=== PATIENT | female | born 1965 | race Hispanic/Latino ===

== ENCOUNTER 2020-11-22 15:42 | Emergency (ER) | payer SELFPAY ==
[2020-11-22] MEDS ORDERED: 0.9% NACL 500ML IV.SOLN 500 ML IV ONE ×2 (16:20→18:20)
[2020-11-22 16:35] LABS: BASOPHILS % (AUTO) 0.2 % (0.0-5.0); EOSINOPHILS % (AUTO) 1.5 % (0.0-8.0); HEMATOCRIT 35.4 % (36-48); LYMPHOCYTES % (AUTO) 25.7 % (21.0-51.0); MEAN CORPUSCULAR HEMOGLOBIN 27.5 pg (27.0-33.0); MEAN CORPUSCULAR HGB CONC 32.5 g/dL (32.0-36.0); MEAN CORPUSCULAR VOLUME 84.7 fL (79-99); MONOCYTES % (AUTO) 4.3 % (3.0-13.0); NEUTROPHILS % (AUTO) 67.8 % (40.0-77.0); PLATELET COUNT (AUTO) 252 K/uL (130-400); RED BLOOD CELL COUNT(AUTO) 4.18 MIL/uL (4.00-5.50); RED CELL DISTRIBUTION WIDTH 12.9 % (11.0-15.5); WHITE BLOOD COUNT (AUTO) 10.7 K/uL (4.8-10.8)
[2020-11-22 16:51] LABS: ALBUMIN 3.6 g/dL (3.5-5.0); BILIRUBIN,TOTAL 0.3 mg/dL (0.2-1.0)
[2020-11-22 17:32] LABS: APPEARANCE,URINE Clear (CLEAR); BILIRUBIN,URINE Negative (NEGATIVE); COLOR,URINE Yellow (YELLOW); GLUCOSE, URINE (UA) 500 mg/dL (NEGATIVE); KETONES,URINE Negative (NEGATIVE); LEUKOCYTE ESTERASE ,URINE Negative (NEGATIVE); NITRATE,URINE Negative (NEGATIVE); OCCULT BLOOD,URINE Negative (NEGATIVE); PROTEIN,URINE Negative (NEGATIVE); UROBILINOGEN,URINE 0.2 mg/dL (0.2-1.0)
[2020-11-22 17:46] LABS: BACTERIA,URINE Rare /HPF (None Seen); RBC,URINE 0-1 /HPF (0-1); SQUAMOUS EPITHELIAL CELL,UR Few /HPF (0-2); WBC,URINE 0-1 /HPF (0-1)
== END 2020-11-22 19:45 | disposition home or self-care (01) ==
LOC: EDH 15:42
DX: R11.2 Nausea with vomiting, unspecified (principal); E86.0 Dehydration; T36.8X5A Adverse effect of other systemic antibiotics, initial encounter; E11.65 Type 2 diabetes mellitus with hyperglycemia; I10 Essential (primary) hypertension; Y92.89 Other specified places as the place of occurrence of the external cause
CPT/HCPCS: 36415; 80053; 81001; 84484; 85025; 93005; 96360; 99284; J7040 ×2

== ENCOUNTER 2021-10-07 19:34 | Emergency (ER) | payer SELFPAY ==
[~2021-10-07] VITALS: Ht 154.9 cm; Wt 93.0 kg
[2021-10-07] MEDS ORDERED: NIFEDIPINE 10 MG CAP PO SCH (20:00)
[2021-10-07 20:26] LABS: BASOPHILS % (AUTO) 0.2 % (0.0-5.0); EOSINOPHILS % (AUTO) 1.7 % (0.0-8.0); HEMATOCRIT 38.2 % (36-48); LYMPHOCYTES % (AUTO) 30.1 % (21.0-51.0); MEAN CORPUSCULAR HEMOGLOBIN 27.4 pg (27.0-33.0); MEAN CORPUSCULAR HGB CONC 32.2 g/dL (32.0-36.0); MEAN CORPUSCULAR VOLUME 85.1 fL (79-99); MONOCYTES % (AUTO) 3.5 % (3.0-13.0); NEUTROPHILS % (AUTO) 64.3 % (40.0-77.0); PLATELET COUNT (AUTO) 267 K/uL (130-400); RED BLOOD CELL COUNT(AUTO) 4.49 MIL/uL (4.00-5.50); RED CELL DISTRIBUTION WIDTH 13.1 % (11.0-15.5); WHITE BLOOD COUNT (AUTO) 8.9 K/uL (4.8-10.8)
[2021-10-07 20:41] LABS: CREATININE 1.2 mg/dL (0.5-1.5); POTASSIUM 3.8 mmol/L (3.5-5.1)
[2021-10-07 20:46] LABS: ALBUMIN 3.5 g/dL (3.5-5.0); BILIRUBIN,TOTAL 0.2 mg/dL (0.2-1.0); TOTAL PROTEIN, SERUM 7.9 g/dL (6.0-8.3)
[2021-10-07] MEDS ORDERED: INSULIN HUMULIN R 100 UNIT/ML 3ML IV ONE (21:30)
[2021-10-07] MEDS ORDERED: 0.9% NACL 500ML IV.SOLN 500 ML IV SCH (21:30)
[2021-10-07 21:36] LABS: APPEARANCE,URINE Clear (CLEAR); BILIRUBIN,URINE Negative (NEGATIVE); COLOR,URINE Yellow (YELLOW); GLUCOSE, URINE (UA) >=1000 mg/dL (NEGATIVE); KETONES,URINE Negative (NEGATIVE); LEUKOCYTE ESTERASE ,URINE Negative (NEGATIVE); NITRATE,URINE Negative (NEGATIVE); OCCULT BLOOD,URINE Negative (NEGATIVE); PH,URINE 6.5 (5.0-8.0); PROTEIN,URINE POS 1+ mg/dL (NEGATIVE)
[2021-10-07 21:37] LABS: BACTERIA,URINE None Seen /HPF (None Seen); RBC,URINE 0-1 /HPF (0-1); WBC,URINE 0-1 /HPF (0-1)
[2021-10-07 21:38] VITALS: BP 168/77
== END 2021-10-07 22:12 | disposition home or self-care (01) ==
LOC: EDH 19:34
DX: I10 Essential (primary) hypertension (principal); E11.65 Type 2 diabetes mellitus with hyperglycemia; E66.9 Obesity, unspecified; Z68.38 Body mass index [BMI] 38.0-38.9, adult
CPT/HCPCS: 36415; 71045; 80053; 81001; 82948; 84484; 85025; 93005; 96361; 96374; 99285; J1815; J7040

== ENCOUNTER 2021-10-09 21:28 | Emergency (ER) | payer SELFPAY ==
[~2021-10-09] VITALS: Ht 152.4 cm; Wt 92.5 kg
[2021-10-10] MEDS ORDERED: LABETALOL 20MG VIAL IV ONE (00:30)
[2021-10-10 01:35] LABS: BASOPHILS % (AUTO) 0.4 % (0.0-5.0); EOSINOPHILS % (AUTO) 2.5 % (0.0-8.0); HEMATOCRIT 39.3 % (36-48); MEAN CORPUSCULAR HEMOGLOBIN 27.9 pg (27.0-33.0); MEAN CORPUSCULAR HGB CONC 32.3 g/dL (32.0-36.0); MEAN CORPUSCULAR VOLUME 86.2 fL (79-99); MONOCYTES % (AUTO) 4.6 % (3.0-13.0); NEUTROPHILS % (AUTO) 58.2 % (40.0-77.0); PLATELET COUNT (AUTO) 276 K/uL (130-400); RED BLOOD CELL COUNT(AUTO) 4.56 MIL/uL (4.00-5.50); RED CELL DISTRIBUTION WIDTH 13.3 % (11.0-15.5); WHITE BLOOD COUNT (AUTO) 11.6 K/uL (4.8-10.8)
[2021-10-10 01:47] LABS: CREATININE 1.1 mg/dL (0.5-1.5); POTASSIUM 3.8 mmol/L (3.5-5.1)
[2021-10-10 01:50] LABS: ALBUMIN 3.7 g/dL (3.5-5.0); BILIRUBIN,TOTAL 0.3 mg/dL (0.2-1.0); TOTAL PROTEIN, SERUM 7.6 g/dL (6.0-8.3)
[2021-10-10 02:00] LABS: B-TYPE NATRIURETIC PEPTIDE 16 pg/mL (0-100)
[2021-10-10 02:41] VITALS: BP 124/41
[2021-10-10] MEDS ORDERED: METO-408 PO (03:29)
[2021-10-10] MEDS ORDERED: METO25PO2 PO (03:34)
== END 2021-10-10 03:45 | disposition home or self-care (01) ==
LOC: EDH 21:28
DX: I10 Essential (primary) hypertension (principal); E11.65 Type 2 diabetes mellitus with hyperglycemia; Z20.822 Contact with and (suspected) exposure to COVID-19; E66.9 Obesity, unspecified; Z68.38 Body mass index [BMI] 38.0-38.9, adult; Z79.899 Other long term (current) drug therapy
CPT/HCPCS: 36415; 80053; 82550; 83690; 83735; 83880; 84484; 85025; 87635; 93005; 99284; C9803; J3490

== ENCOUNTER 2024-02-20 10:34 | Emergency (ER) | payer BC ==
[~2024-02-20] VITALS: Ht 154.9 cm; Wt 99.8 kg
[~2024-02-20 10:34] MED LIST: METO25PO2 PO
[2024-02-20 10:51] LABS: BASOPHILS # (AUTO) 0.03 K/uL (0.00-0.20); BASOPHILS % (AUTO) 0.3 % (0.0-5.0); EOSINOPHILS # (AUTO) 0.16 K/uL (0.00-0.70); EOSINOPHILS % (AUTO) 1.6 % (0.0-8.0); HEMATOCRIT 39.2 % (36-48); IMMATURE GRANULOCYTE ABSOLUTE 0.06 K/uL (0-1); LYMPHOCYTES # (AUTO) 2.3 K/uL (1.0-4.8); LYMPHOCYTES % (AUTO) 23.1 % (21.0-51.0); MEAN CORPUSCULAR HEMOGLOBIN 28.9 pg (27.0-33.0); MEAN CORPUSCULAR HGB CONC 33.2 g/dL (32.0-36.0); MEAN CORPUSCULAR VOLUME 87.1 fL (79-99); MONOCYTES # (AUTO) 0.3 K/uL (0.1-1.0); MONOCYTES % (AUTO) 3.2 % (3.0-13.0); NEUTROPHILS # (AUTO) 6.9 K/uL (1.8-7.7); NEUTROPHILS % (AUTO) 71.2 % (40.0-77.0); PLATELET COUNT (AUTO) 289 K/uL (130-400); RED CELL DISTRIBUTION WIDTH 12.7 % (11.0-15.5); WHITE BLOOD COUNT (AUTO) 9.8 K/uL (4.8-10.8)
[2024-02-20] MEDS: HYDRALAZINE 20MG/ML VIAL IV ONE (10:56)
[2024-02-20] MEDS: ONDANSETRON 4MG INJ IVP ONE (10:56)
[2024-02-20] MEDS: FAMOTIDINE 20MG VIAL IV ONE (10:57)
[2024-02-20 11:00] LABS: CREATININE 1.1 mg/dL (0.5-1.0); POTASSIUM 4.1 mmol/L (3.5-5.1)
[2024-02-20 11:01] LABS: INR 0.97 (0.85-1.15); PROTHROMBIN TIME 11.5 SEC (9.6-11.6)
[2024-02-20 11:02] LABS: PARTIAL THROMBOPLASTIN TIME 29.2 SEC (26.3-35.5)
[2024-02-20 11:06] LABS: ALBUMIN 3.5 g/dL (3.5-5.0); BILIRUBIN,TOTAL 0.3 mg/dL (0.2-1.0); TOTAL PROTEIN, SERUM 8.3 g/dL (6.0-8.3)
[2024-02-20] MEDS: MORPHINE 2 MG SYG IVP ONE (11:10)
[2024-02-20 11:11] LABS: B-TYPE NATRIURETIC PEPTIDE 152 pg/mL (0-100)
[2024-02-20 12:32] VITALS: BP 174/62; PULSE 74; RESP 18; O2SAT 97
[2024-02-20] MEDS: CLONIDINE HCL 0.2 MG TABLET PO ONE (13:04)
== END 2024-02-20 13:22 | disposition home or self-care (01) ==
LOC: EDH 10:34
DX: I10 Essential (primary) hypertension (principal); E11.9 Type 2 diabetes mellitus without complications; E66.9 Obesity, unspecified
CPT/HCPCS: 99284; 96374; 96375; 70450; 71045; 84484 ×2; 80053; 83880; 83690; 85025; 85610; 85730; 36415; 93005; J3490; J2270; J0360; J2405

== ENCOUNTER 2025-05-04 22:06 | Emergency (ER) | payer BC ==
[~2025-05-04] VITALS: Ht 152.4 cm; Wt 99.8 kg
[2025-05-04] MEDS: 0.9%NACL 1000ML 1,000 ML IV ONE (22:44)
[2025-05-04] MEDS: ASPIRIN 325MG TAB PO ONE (22:44)
[2025-05-04 22:52] LABS: IMMATURE GRANULOCYTE ABSOLUTE 0.03 K/uL (0-1); NUCLEATED RED BLOOD CELLS 0.0 % (0.0-0.19); PLATELET COUNT (AUTO) 225 K/uL (130-400); RED BLOOD CELL COUNT(AUTO) 3.80 MIL/uL (4.00-5.50); RED CELL DISTRIBUTION WIDTH 13.2 % (11.0-15.5); WHITE BLOOD COUNT (AUTO) 9.3 K/uL (4.8-10.8)
[2025-05-04 23:09] LABS: CREATININE 1.3 mg/dL (0.5-1.0); GLOMERULAR FILTR. RATE CALC 47.0 mL/min (>90); GLUCOSE,RANDOM 310.0 mg/dL (70-105); SODIUM SERUM 132.0 mmol/L (136-145); UREA NITROGEN, BLOOD 22.0 mg/dL (7-18)
--- NOTE | 2025-05-04 23:11 | ERN ---
ED Note History of Present Illness Stated Complaint: SLURRED SPEECH Chief Complaint: Slurred Speech Time Seen by MD: 22:19 Dictation: This is a 59-year-old morbidly obese female who came into the emergency room brought by family members with complaints that she was at [facility] today and t ransiently felt that her speech was slurred at 21 45 hours which was observed by her son. She did not have any facial droop ptosis or weakness of the legs. No history of any fall loss of consciousness. No history of seizure activity no history of any trauma. She denied any alcohol intake. By the time she came to the ER she was completely normal Temperature 98.2 pulse 87 respirations 18 blood pressure 185/70 with a pulse oximetry of 97% on room air Her chronic comorbidities include diabetes mellitus, hypertension, morbid obesity, chronic kidney disease, abnormal liver function studies and she was told she had gallstones Allergies: Coded Allergies: No Known Allergies (Unverified Allergy, Unknown, 10/07/21) Home Meds Active Scripts Aspirin (Aspirin) 81 Mg Tab.chew, 1 TAB PO DAILY for 30 Days, #30 TAB 0 Refills Prov:SHARON JACKSON MD 05/05/25 Clopidogrel Bisulfate (Plavix) 75 Mg Tablet, 1 TAB PO DAILY for 30 Days, #30 TAB 0 Refills Prov:SHARON JACKSON MD 05/05/25 Metoprolol Tartrate (Metoprolol Tartrate) 25 Gm Powder, 25 MG PO BID for 10 Days, #20 APPL 0 Refills Prov:YENNI DURAN MD 10/10/21 Past Medical History Past Medical History: Diabetes-Type II, Hypertension Additional Past Medical Hx: Obesity Surgical History: None Family History: Negative Social History: Negative, Lives with family History: Not Applicable RN Note Reviewed/Agreed w/PFSH: Yes Review of System Dictation Constitutional: Negative for fever,chills, and weight loss Eyes: Negative for injury, pain,redness, and discharge ENT: Negative for injury,pain or swelling Cardiovascular: Negative for chest pain, palpitations, and edema Respiratory: Negative for shortness of breath, cough, and wheezing, Abdomen/GI: Negative for abdominal pain, nausea, vomiting, diarrhea, and constipation Back: Negative for injury and pain : Negative for injury, bleeding and discharge MS/Extremity: Negative for injury and deformity Skin: Negative for rash, and discoloration Neuro: Negative for headache, weakness, numbness, tingling, and seizure Psych: Negative for suicide ideation, homicidal ideation, and hallucinations Initial Vital Sign VS Vital Signs Date Time Temp Pulse Resp B/P (MAP) Pulse Ox O2 Delivery O2 Flow Rate FiO2 05/04/25 22:07 98.2 87 18 185/70 97 05/04/25 23:04 Room Air* 0 21 Physical Exam Dictation General: awake, alert, NAD morbidly obese female Head/Face: Normocephalic, atraumatic Eyes: PERRL, EOMI, vision at baseline ENT: oral cavity clear, TMs clear, no signs of infection Neck: Trachea midline, supple, no nuchal rigidity Cardiovascular: RRR, normal S1/S2, No MRGs, no JVD Respiratory: CTAB, no respiratory distress, No rales or wheezes Abdomen: Soft, non-tender, non-distended, normal bowel sounds, no guarding or rebound. Skin: Warm, dry, normal turgor, no rash MS/Extremity: Pulses equal, no cyanosis, neurovascular intact, FROM Neuro: COAx4, GCS 15, strength 5/5, CN 2-12 intact, normal cerebellar exam, normal gait, Psych: Normal behavior, mood, and affect normal Extremities-trace edema without any palpable cords, Homans sign is negative Results (Laboratory/Radiology) Laboratory/Radiology Laboratory Tests Test 05/04/25 22:43 White Blood Count 9.3 K/uL (4.8-10.8) Red Blood Count 3.80 MIL/uL (4.00-5.50) L Hemoglobin 10.9 g/dL (12.0-16.0) L Hematocrit 34.3 % (36-48) L Mean Corpuscular Volume 90.3 fL (79-99) Mean Corpuscular Hemoglobin 28.7 pg (27.0-33.0) Mean Corpuscular Hemoglobin Concent 31.8 g/dL (32.0-36.0) L Red Cell Distribution Width 13.2 % (11.0-15.5) Platelet Count 225 K/uL (130-400) Mean Platelet Volume 9.5 fL (7.5-10.5) Immature Granulocyte % (Auto) 0.3 % (0-1) Neutrophils (%) (Auto) 65.1 % (40.0-77.0) Lymphocytes (%) (Auto) 27.3 % (21.0-51.0) Monocytes (%) (Auto) 5.2 % (3.0-13.0) Eosinophils (%) (Auto) 1.9 % (0.0-8.0) Basophils (%) (Auto) 0.2 % (0.0-5.0) Neutrophils # (Auto) 6.1 K/uL (1.8-7.7) Lymphocytes # (Auto) 2.5 K/uL (1.0-4.8) Monocytes # (Auto) 0.5 K/uL (0.1-1.0) Eosinophils # (Auto) 0.18 K/uL (0.00-0.70) Basophils # (Auto) 0.02 K/uL (0.00-0.20) Absolute Immature Granulocyte (auto 0.03 K/uL (0-1) Nucleated Red Blood Cells 0.0 % (0.0-0.19) Sodium Level 132 mmol/L (136-145) L Potassium Level 5.4 mmol/L (3.5-5.1) H Chloride Level 100 mmol/L (101-111) L Carbon Dioxide Level 26 mmol/L (21-32) Blood Urea Nitrogen 22 mg/dL (7-18) H Creatinine 1.3 mg/dL (0.5-1.0) H Glomerular Filtration Rate Calc 47 mL/min (>90) Random Glucose 310 mg/dL (70-105) H Total Calcium 9.0 mg/dL (8.5-10.1) Total Creatine Kinase 117 U/L (21-232) # Troponin I High Sensitivity 5 ng/L (4-50) Labs Reviewed?: Yes EKG Comment: Twelve lead EKG done on 05/04/2025 at 11:09 p.m. shows a heart rate of 73, WI interval 193, QRS duration 96, QT/QTC 420/464 Impression normal sinus rhythm with a no acute STT wave changes noted. Overall slightly low voltage secondary to body habitus. EKG rhythm strip shows a normal sinus rhythm with no acute STT wave changes noted. Interpreted by ER MD Dr. Jackson ED Course ED Course Orders Procedure Category Date Status Time Cbc With Differential LAB 05/04/25 Complete 22:19 Ct Head/Brain W/O CT 05/04/25 Resulted Contrast 22:19 Chest 1vw RAD 05/04/25 Resulted 22:19 12 Lead Ekg Tracing- EKG 05/04/25 Logged Technical 22:19 0.9%Nacl 1000ml (Ns PHA 05/04/25 In Process 1000ml) 22:30 Aspirin 325mg Tab PHA 05/04/25 Complete (Aspirin 325mg Tab) 22:30 Creatine Kinase, Total LAB 05/04/25 Complete 22:19 Troponin I High LAB 05/04/25 Complete Sensitivity 22:19 Urinalysis Profile LAB 05/04/25 Logged 22:19 Bedside Glucose CPOE 05/04/25 Transmitted Fingerstick 22:19 Neurological Vs Q4hrs TOMASA 05/04/25 Transmitted 22:19 Vital Signs Per CPOE 05/04/25 Transmitted Routine 22:19 Cardiac Monitoring CPOE 05/04/25 Transmitted 22:19 Complete Nih Stroke CPOE 05/04/25 Transmitted Scale 22:19 Basic Metabolic Panel LAB 05/04/25 Complete 22:19 Clopidogrel 300mg Tab PHA 05/04/25 Complete (Plavix 300mg Tab) 23:30 Current Medications Medications (Trade) Dose Ordered Sig/Shelley Route PRN Reason Start Time Stop Time Status Last Admin Dose Admin Aspirin (Aspirin 325mg Tab) 325 mg ONCE ONCE PO 05/04/25 22:30 05/04/25 22:31 DC 05/04/25 22:44 Clopidogrel Bisulfate (plaVIX 300MG TAB) 600 mg ONCE ONCE PO 05/04/25 23:30 05/04/25 23:31 DC 05/04/25 23:59 Sodium Chloride 1,000 ml @ 125 mls/hr ONCE ONCE IV 05/04/25 22:30 05/05/25 06:29 05/04/25 22:44 Vital Signs Date Time Temp Pulse Resp B/P (MAP) Pulse Ox O2 Delivery O2 Flow Rate FiO2 05/05/25 00:05 98.6 85 18 161/58 97 Room Air* 0 05/04/25 23:04 98.8 88 18 154/56 99 Room Air* 0 05/04/25 22:07 98.2 87 18 185/70 97 We will perform diagnostic labs, advanced imaging and administer medications according to the patient's complaint. Once the results are available, will review and personally interpreted the labs to rule out any acute life- threatening emergency the trach require immediate intervention and treatment. I will then re-evaluate the patient after treatment and diagnostic exams have return to determine whether the patient requires any further testing, can safely be discharged home or need further admission to hospital for additional casper atment and evaluation. Labs reviewed CBC showed a hemoglobin of 10.9. Chest x-ray unremarkable for any acute infiltrate. 11:[address] scan of the head is finally done results are pending I updated the patient and her at bedside about all the lab test results and also preliminary CT scan that I did not see any obvious intracranial abnormality other than some mild atrophy. I have presented to her that what she has suffered could be TIA she needs further evaluation including CT neck and CT head with contrast and MRI and this facility does not have any Neurology services and I recommended transfer to another facility for further neurology workup. She also needs an echocardiogram with bubble study. Patient stated that she will not go through any dye study to protect her kidneys. Patient is a ABCD score is 4 which puts her at a moderate risk of 4% for 2 days stroke. I have already given her the aspirin in the Plavix loading doses. She wants to be discharged to home to follow up with her primary care physician to pursue MRI and additional studies.. Her was present during the discussion Patient adamantly declined any contrast studies and she did not want to wait for MRI. I explained to her the risk and the importance of evaluating the cerebral vasculature and she verbalized full understanding Medical Decision Making MDM Differential diagnosis: TIA, syncope, dehydration, hypoglycemia, metabolic encephalopathy Rationale: Tests considered and ordered secondary to shared decision making include: Previous outside records reviewed: Old ER visits. Risk of complication and/or morbidity or mortality of patient management: None Medications-Per medication reconciliation Need for hospitalization: Patient does not meet criteria for hospitalization. Need for emergency major/minor surgery: No There are no social concerns with this patient. Prescription drug management Prescriptions will include symptomatic care Patient's prior external medical records from other ER visits were reviewed by me as indicated. Prior testing and results from previous visits were reviewed. Prior tests were taken into account with medical decision making and resource utilization, independent historian/historians were used to obtain complete medical history. I independently interpreted the test that were performed, results were reviewed by me and considered findings on radiology if ordered. Medical management and examination interpretation discussions were had by me with other qualified healthcare professionals as indicated for the patient's care. Problem List Problem List: (1) Transient ischemic attack (2) Obesity (3) Uncontrolled diabetes mellitus (4) Uncontrolled hypertension NIH STROKE SCALE: NIH STROKE SCALE Response (Comments) Value Level of Consciousness Alert 0 Ask patient month and their age Answers both correct 0 Command to open eyes, make fist and let go Obeys both correct 0 Best gaze (horizontal eye movement) Normal 0 Visual Field Testing No Visual Field Loss 0 Facial Paresis Normal / Symmetrical 0 Motor Function - Left Arm Normal 0 Motor Function - Right Arm Normal 0 Motor Function - Left Leg Normal 0 Motor Function - Right Leg Normal 0 Limb Ataxia No Ataxia 0 Sensory-pin prick to arms, legs, trunk and face Normal 0 Best Language (describe picture, name items and read) No Aphasia 0 Dysarthria (read several words) Normal Articulation 0 Extinction and Inattention Normal 0 Total DX & DISP Disposition: Discharge Departure Impression: Primary Impression: Transient ischemic attack Additional Impressions: Uncontrolled hypertension, Uncontrolled diabetes mellitus, Obesity Condition: Stable Scripts Aspirin (Aspirin) 81 Mg Tab.chew 1 TAB PO DAILY for 30 Days, #30 TAB 0 Refills Prov: SHARON JACKSON MD 05/05/25 Clopidogrel Bisulfate (Plavix) 75 Mg Tablet 1 TAB PO DAILY for 30 Days, #30 TAB 0 Refills Prov: SHARON JACKSON MD 05/05/25 Additional Instructions: Patient and the caregiver have been informed of all the diagnostic tests and the imaging conducted during the today's visit to the emergency room and has verbalized understanding of the results I have personally reviewed and interpreted all diagnostic exams performed here in the ER today as well as the vital signs documented by the nursing staff. The patient is now being discharged to home and should follow up with the primary care physician or the specialist as directed by the ER staff. Follow-up with primary care provider in 1 to 2 days. Take medications as directed here in the emergency room. Okay to continue home medications unless otherwise discussed during your visit in the emergency room today. Return to your nearest emergency room if symptoms worsen or if there is no improvement. Call 911 if you need immediate assistance. Take Tylenol or Motrin [id number] as needed and if no contraindications are present. Increase oral hydration. A wound culture or urine culture was ordered here in the emergency room department please follow-up with primary care provider and advise them to get repeat ports from our facility. If you had any Levi wrap/splints that were applied here, please do not remove them until you see your primary care or specialty. Referrals: MINDI REYES MD (PCP) SHARON JACKSON MD May 04, 2025 23:11
[2025-05-04 23:14] LABS: CREATINE KINASE, TOTAL 117.0 U/L (21-232)
--- NOTE | 2025-05-04 23:27 | HMCIMG ---
EXAM: CR Chest, 1 view. CLINICAL HISTORY: Stroke symptoms. COMPARISON: Chest x-ray dated 02/20/24. FINDINGS: The lungs show no infiltrate or other acute findings. No pleural effusion or pneumothorax. The cardiomediastinal silhouette is within normal limits. No acute osseous abnormality. IMPRESSION: No acute cardiopulmonary pathology is evident. No gross interval changes. /[place]
--- NOTE | 2025-05-04 23:53 | HMCIMG ---
EXAM: Non-contrast CT examination of the Brain CLINICAL HISTORY: Slurred speech. TECHNIQUE: Thin collimated axial CT images of the brain were obtained, with sagittal and coronal reformatted images also submitted. CT scan done according to ALARA (As Low as Reasonably Achievable). CONTRAST USED: None. COMPARISON: Prior CT brain dated 02/20/24. FINDINGS: No acute intracranial abnormality is present. Mild generalized brain atrophy. No acute cortical infarction, hemorrhage, mass, or mass effect. No hydrocephalus or abnormal extra-axial fluid collections. The posterior fossa is unremarkable. The skull base and calvarium are intact. The included portions of the paranasal sinuses and mastoid air cells are clear. IMPRESSION: No acute intracranial abnormality is present. Mild generalized brain atrophy. No significant interval change. /[place]
[2025-05-05] MEDS ORDERED: CLOP-31 PO (00:03)
[2025-05-05] MEDS ORDERED: ASPI-1197 PO (00:03)
[2025-05-05 00:05] VITALS: BP 161/58; PULSE 85; RESP 18; TEMP 98.6; O2SAT 97
--- NOTE | 2025-05-05 07:04 | EKG ---
[facility] Test Date: 2025-05-04 Test Time: 23:09:37 Pat Name: LANDON URBINA Department: ED Room: Gender: Female [employer]or: [id number] : 1965 Requested By: SHARON JACKSON Order Number: [id number] Reading MD: Measurements Intervals Canvas Rate: 73 P: 50 VA: 193 QRS: 24 QRSD: 96 T: 48 QT: 420 QTc: 464 Interpretive Statements Sinus rhythm No previous ECG available for comparison Please click the below link to view image of tracing.
== END 2025-05-05 01:19 | disposition home or self-care (01) ==
LOC: EDH 22:06
DX: G45.9 Transient cerebral ischemic attack, unspecified (principal); I10 Essential (primary) hypertension; E11.65 Type 2 diabetes mellitus with hyperglycemia; E66.9 Obesity, unspecified; Z79.02 Long term (current) use of antithrombotics/antiplatelets; Z79.82 Long term (current) use of aspirin; Z79.899 Other long term (current) drug therapy
CPT/HCPCS: 99284; 70450; 71045; 82550; 84484; 80048; 85025; 36415; 93005; J7030